=== PATIENT | male | born 1980 | race Caucasian/White ===

== ENCOUNTER 2017-01-31 09:51 | Emergency (ER) | payer BC ==
[2017-01-31] MEDS ORDERED: Ondansetron 4 MG/2 ML SDV IVPUSH ONE (10:10)
[2017-01-31] MEDS ORDERED: HYDROmorphone 1 MG/ML Syringe IVPUSH ONE ×5 (10:10→14:06)
[2017-01-31] MEDS ORDERED: Sodium Chloride 0.9% 1,000 ML IV SCH (10:15)
--- NOTE | 2017-01-31 10:17 | EDM.PDOC ---
ED HPI GENERAL MEDICAL PROBLEM - General Chief Complaint: Abdominal Pain Stated Complaint: CHEST AND ABDOMINAL PAIN Time Seen by Provider: 01/31/17 09:57 Source of Information: Reports: Patient, Family (), RN Notes Reviewed History Limitations: Reports: No Limitations - History of Present Illness INITIAL COMMENTS - FREE TEXT/NARRATIVE: The patient states that he developed upper abdominal pain around 09:00 this morning. He came on suddenly. It does not radiate. The patient has not identified any modifiers. He has not attempted any treatment. He states that he has had nausea, but no emesis. No recent constipation, diarrhea, urinary symptoms, or fever. No prior similar symptoms. The patient is a type I diabetic, and states that his blood sugar was 400 this morning. He states that he took 7 units of his fast acting insulin via his insulin pump, and his Accu-Chek is 129 here in the ED. The patient's last oral solid food was around 22:00 last night, and his last oral liquid was around 08:00 this morning. Upper Abdomen Pain Score (Numeric/FACES): 10 - Related Data Allergies Allergy/AdvReac Type Severity Reaction Status Date / Time bacitracin Allergy Rash Verified 01/31/17 09:56 Home Meds: Home Meds Insulin Lispro [HumaLOG] 0 units IDERM ASDIRECTED 07/22/14 [History] lamoTRIgine [Lamictal] 50 mg PO DAILY 01/31/17 [History] Past Medical History Neurological History: Reports: Seizure (only if he becomes hypoglycemic) Endocrine/Metabolic History: Reports: Diabetes, Type I - Past Surgical History Musculoskeletal Surgical History: Reports: Carpal Tunnel (bilateral) Social & Family History - Tobacco Use Smoking Status *Q: Former Smoker Years of Tobacco use: 22 Packs/Tins Daily: 0.5 Used Tobacco, but Quit: Yes Month Tobacco Last Used: Quit 2011 - Caffeine Use Caffeine Use: Reports: None - Alcohol Use Alcohol Use History: Yes Days Per Week of Alcohol Use: 0 Alcohol Use Frequency: Socially - Recreational Drug Use Recreational Drug Use: No - Living Situation & Occupation Living situation: Reports: , with Spouse Occupation: Employed ([employer]) ED ROS GENERAL - Review of Systems Review Of Systems: See Below Constitutional: Reports: No Symptoms HEENT: Reports: No Symptoms Respiratory: Reports: No Symptoms Cardiovascular: Reports: No Symptoms Endocrine: Reports: No Symptoms GI/Abdominal: Reports: No Symptoms : Reports: No Symptoms Musculoskeletal: Reports: No Symptoms Skin: Reports: No Symptoms Neurological: Reports: No Symptoms Psychiatric: Reports: No Symptoms Hematologic/Lymphatic: Reports: No Symptoms Immunologic: Reports: No Symptoms ED EXAM, GI/ABD - Physical Exam Exam: See Below Exam Limited By: No Limitations General Appearance: Alert, WD/WN, Moderate Distress (constantly groaning) Eyes: Bilateral: EOMI Ears: Normal External Exam, Hearing Grossly Normal Nose: Normal Inspection, No Blood Throat/Mouth: Normal Inspection, Normal Lips, Normal Voice, No Airway Compromise Head: Atraumatic, Normocephalic Neck: Normal Inspection, Full Range of Motion Respiratory/Chest: No Respiratory Distress, Lungs Clear, Normal Breath Sounds, No Accessory Muscle Use Cardiovascular: Normal Peripheral Pulses, Regular Rate, Rhythm, No Gallop, No JVD, No Murmur, No Rub GI/Abdominal Exam: Soft, Non-Tender (even to the upper abdomen), No Organomegaly , No Distention, No Abnormal Bruit, No Mass, Other (No bowel sounds). No: Guarding (Male) Exam: Deferred Back Exam: Normal Inspection, Full Range of Motion. No: CVA Tenderness (L), CVA Tenderness (R) Extremities: Normal Inspection, Normal Range of Motion, No Pedal Edema, Normal Capillary Refill Neurological: Alert, Oriented, Normal Cognition, No Motor/Sensory Deficits Psychiatric: Normal Affect Skin Exam: Warm, Dry, Intact, Normal Color, No Rash Lymphatic: No Adenopathy EKG INTERPRETATION EKG Date: 01/31/17 Time: 14:08 Rhythm: NSR Rate (Beats/Min): 71 Atkinson: Normal P-Wave: Present QRS: Normal ST-T: Normal QT: Normal Comparison: NA - No Prior EKG Course - Vital Signs Last Recorded V/S: Last Vital Signs Temp 36.6 C 01/31/17 09:59 Pulse 77 01/31/17 09:59 Resp 18 01/31/17 09:59 BP 159/114 H 01/31/17 09:59 Pulse Ox 100 01/31/17 09:59 - Orders/Labs/Meds Orders: Active Orders 24 hr Category Date Time Status Blood Glucose Check, Bedside [RC] ONETIME Care 01/31/17 12:40 Active EKG Documentation Completion [RC] STAT Care 01/31/17 14:00 Active ABG [BLOOD GAS ARTERIAL] [BG] Stat Lab 01/31/17 15:22 Ordered Sodium Chloride 0.9% [Normal Saline] 1,000 ml Med 01/31/17 10:15 Active IV ASDIRECTED Sodium Chloride 0.9% [Saline Flush] Med 01/31/17 10:36 Active 10 ml FLUSH ONETIME PRN Medication Orders Sodium Chloride (Normal Saline) 1,000 mls @ 150 mls/hr IV ASDIRECTED IRA Last Admin: 01/31/17 10:16 Dose: 150 mls/hr Sodium Chloride (Saline Flush) 10 ml FLUSH ONETIME PRN PRN Reason: IV FLUSH Last Admin: 01/31/17 11:48 Dose: 10 ml Admin: 01/31/17 10:52 Dose: 10 ml Labs: Laboratory Tests 01/31/17 01/31/17 01/31/17 Range/Units 09:55 09:55 09:56 WBC 12.65 H (4.23-9.07) K/mm3 RBC 5.95 (4.63-6.08) M/mm3 Hgb 17.2 (13.7-17.5) gm/L Hct 48.7 (40.1-51.0) % MCV 81.8 (79.0-92.2) fl MCH 28.9 (25.7-32.2) pg MCHC 35.3 (32.2-35.5) g/dl RDW Std Deviation 38.0 (35.1-43.9) fL Plt Count 347 H (163-337) K/mm3 MPV 9.3 L (9.4-12.3) fl Neutrophils % (Manual) 89 H (40-60) % Band Neutrophils % 2 (0-10) % Lymphocytes % (Manual) 6 L (20-40) % Atypical Lymphs % 0 % Monocytes % (Manual) 1 L (2-10) % Eosinophils % (Manual) 2 (0.8-7.0) % Basophils % (Manual) 0 L (0.2-1.2) Platelet Estimate Adequate RBC Morph Comment Normal Sodium 140 (136-145) mEq/L Potassium 3.9 (3.5-5.1) mEq/L Chloride 103 (98-107) mEq/L Carbon Dioxide 29 (21-32) mEq/L Anion Gap 11.9 (5-15) BUN 14 (7-18) mg/dL Creatinine 1.3 (0.7-1.3) mg/dL Est Cr Clr Drug Dosing 85.28 mL/min Estimated GFR (MDRD) > 60 (>60) mL/min BUN/Creatinine Ratio 10.8 L (14-18) Glucose 130 H (74-106) mg/dL POC Glucose 129 H (70-105) mg/dL Calcium 9.5 (8.5-10.1) mg/dL Total Bilirubin 0.4 (0.2-1.0) mg/dL AST 21 (15-37) U/L ALT 38 (16-63) U/L Alkaline Phosphatase 98 (46-116) U/L Troponin I (0.00-0.056) ng/mL Total Protein 8.3 H (6.4-8.2) g/dl Albumin 4.3 (3.4-5.0) g/dl Globulin 4.0 gm/dL Albumin/Globulin Ratio 1.1 (1-2) Lipase 100 (73-393) U/L Urine Color (Yellow) Urine Appearance (Clear) Urine pH (5.0-8.0) Ur Specific [place] (1.005-1.030) Urine Protein (Negative) Urine Glucose (UA) (Negative) Urine Ketones (Negative) Urine Occult Blood (Negative) Urine Nitrite (Negative) Urine Bilirubin (Negative) Urine Urobilinogen (0.2-1.0) Ur Leukocyte Esterase (Negative) Urine RBC (0-5) /hpf Urine WBC (0-5) /hpf Ur Epithelial Cells (0-5) /hpf Urine Bacteria (FEW) /hpf Urine Mucus (FEW) /hpf 01/31/17 01/31/17 Range/Units 12:50 14:10 WBC (4.23-9.07) K/mm3 RBC (4.63-6.08) M/mm3 Hgb (13.7-17.5) gm/L Hct (40.1-51.0) % MCV (79.0-92.2) fl MCH (25.7-32.2) pg MCHC (32.2-35.5) g/dl RDW Std Deviation (35.1-43.9) fL Plt Count (163-337) K/mm3 MPV (9.4-12.3) fl Neutrophils % (Manual) (40-60) % Band Neutrophils % (0-10) % Lymphocytes % (Manual) (20-40) % Atypical Lymphs % % Monocytes % (Manual) (2-10) % Eosinophils % (Manual) (0.8-7.0) % Basophils % (Manual) (0.2-1.2) Platelet Estimate RBC Morph Comment Sodium (136-145) mEq/L Potassium (3.5-5.1) mEq/L Chloride (98-107) mEq/L Carbon Dioxide (21-32) mEq/L Anion Gap (5-15) BUN (7-18) mg/dL Creatinine (0.7-1.3) mg/dL Est Cr Clr Drug Dosing mL/min Estimated GFR (MDRD) (>60) mL/min BUN/Creatinine Ratio (14-18) Glucose (74-106) mg/dL POC Glucose (70-105) mg/dL Calcium (8.5-10.1) mg/dL Total Bilirubin (0.2-1.0) mg/dL AST (15-37) U/L ALT (16-63) U/L Alkaline Phosphatase (46-116) U/L Troponin I < 0.017 (0.00-0.056) ng/mL Total Protein (6.4-8.2) g/dl Albumin (3.4-5.0) g/dl Globulin gm/dL Albumin/Globulin Ratio (1-2) Lipase (73-393) U/L Urine Color Yellow (Yellow) Urine Appearance Clear (Clear) Urine pH 5.5 (5.0-8.0) Ur Specific [place] 1.015 (1.005-1.030) Urine Protein Trace H (Negative) Urine Glucose (UA) 2+ H (Negative) Urine Ketones Negative (Negative) Urine Occult Blood Negative (Negative) Urine Nitrite Negative (Negative) Urine Bilirubin Negative (Negative) Urine Urobilinogen 0.2 (0.2-1.0) Ur Leukocyte Esterase Negative (Negative) Urine RBC 0-5 (0-5) /hpf Urine WBC 0-5 (0-5) /hpf Ur Epithelial Cells Not seen (0-5) /hpf Urine Bacteria Not seen (FEW) /hpf Urine Mucus Not seen (FEW) /hpf Meds: Medications Generic Name Dose Route Start Last Admin Trade Name Freq PRN Reason Stop Dose Admin Sodium Chloride 1,000 mls @ 150 mls/hr 01/31/17 10:15 01/31/17 10:16 Normal Saline IV 150 mls/hr ASDIRECTED IRA Administration Sodium Chloride 10 ml 01/31/17 10:36 01/31/17 11:48 Saline Flush FLUSH 10 ml ONETIME PRN Administration IV FLUSH Discontinued Medications Generic Name Dose Route Start Last Admin Trade Name Freq PRN Reason Stop Dose Admin Al Hydroxide/Mg Hydroxide 30 0 ml 01/31/17 12:27 01/31/17 13:31 ml/ Lidocaine HCl 15 ml PO 01/31/17 12:28 45 ml ONETIME STA Administration Diatrizoate Meglum/Diatrizoate Sod 120 ml 01/31/17 10:36 01/31/17 11:48 Gastrografin 37% PO 01/31/17 10:37 90 ml ONETIME ONE Administration Hydromorphone HCl 1 mg 01/31/17 10:10 01/31/17 10:18 Dilaudid IVPUSH 01/31/17 10:11 1 mg ONETIME ONE Administration Hydromorphone HCl 1 mg 01/31/17 10:33 01/31/17 10:37 Dilaudid IVPUSH 01/31/17 10:34 1 mg ONETIME ONE Administration Hydromorphone HCl 1 mg 01/31/17 10:46 01/31/17 10:50 Dilaudid IVPUSH 01/31/17 10:47 1 mg ONETIME ONE Administration Hydromorphone HCl Confirm 01/31/17 10:52 01/31/17 10:54 Dilaudid Administered 01/31/17 10:53 Not Given Dose 1 mg .ROUTE .STK-MED ONE Hydromorphone HCl 1 mg 01/31/17 12:20 01/31/17 12:25 Dilaudid IVPUSH 01/31/17 12:21 1 mg ONETIME ONE Administration Hydromorphone HCl 1 mg 01/31/17 14:06 01/31/17 14:17 Dilaudid IVPUSH 01/31/17 14:07 1 mg ONETIME ONE Administration Iopamidol 150 ml 01/31/17 10:36 01/31/17 11:48 Isovue-300 (61%) IVPUSH 01/31/17 10:37 100 ml ONETIME ONE Administration Ondansetron HCl 4 mg 01/31/17 10:10 01/31/17 10:17 Zofran IVPUSH 01/31/17 10:11 4 mg ONETIME ONE Administration - Re-Assessments/Exams Free Text/Narrative Re-Assessment/Exam: 01/31/17 12:28 CT of the abdomen and pelvis with oral and IV contrast is read by Dr. Farris as: 1. Mild increased stool within the colon. 2. Other normal findings as described above. Nothing acute is appreciated. 01/31/17 12:29 While the patient has not yet provided a urine sample, his blood work and CT scan is unremarkable, and does not explain the cause of the patient's pain. Perhaps he has gastritis. I have ordered a GI cocktail. 01/31/17 14:04 The patient states that he did not get relief from the GI cocktail. Test results discussed with the patient, his , and daughter. I was going to discharge the patient home, however, he became angry, asking "What, are you just going to kick me out?" The patient is still complaining of pain. He has so far received 4 mg of IV Dilaudid. I will order a 5th. Case then discussed with Dr. Reid. He suspects the patient may be suffering from neuropathy related to his diabetes. Treatment would be with Neurontin or Lyrica. He does not see an indication for EGD at this time. 01/31/17 15:[address] Saenz at 13:57. She agrees to place the patient into observation. She will consult Dr. Reid. 01/31/17 15:25 Dr. Saenz evaluated the patient, however, the patient now states that he does not want to be admitted. I will discharge him home. Departure - Departure Time of Disposition: 15:26 Disposition: Home, Self-Care 01 Condition: Fair Clinical Impression: Abdominal pain of unknown etiology - Discharge Information Referrals: Lindsay Dinh DO [Primary Care Provider] - Noel Reid MD [Physician] - Additional Instructions: You were seen in the emergency room for severe upper abdominal pain. Workup in the ER included blood work, a urinalysis, an ECG, and a CT scan of your abdomen and pelvis. Your entire workup was unremarkable, and does not explain the cause of your pain. Your case was discussed with the Surgeon Dr. Noel Reid. He suggested that your pain may be due to nerve damage from your diabetes. You were offered admission to the hospital for further evaluation, but declined. We recommend that you follow-up with Dr. Reid for possible EGD (scope of the esophagus and stomach). Follow-up with your PCP, Dr. Lindsay Dinh, as needed. If any other problems, please do not hesitate to return to the ER. - My Orders Last 24 Hours: My Active Orders 01/31/17 10:15 Sodium Chloride 0.9% [Normal Saline] 1,000 ml IV ASDIRECTED 01/31/17 10:36 Sodium Chloride 0.9% [Saline Flush] 10 ml FLUSH ONETIME PRN 01/31/17 12:40 Blood Glucose Check, Bedside [RC] ONETIME 01/31/17 14:00 EKG Documentation Completion [RC] STAT - Assessment/Plan Last 24 Hours: My Active Orders 01/31/17 10:15 Sodium Chloride 0.9% [Normal Saline] 1,000 ml IV ASDIRECTED 01/31/17 10:36 Sodium Chloride 0.9% [Saline Flush] 10 ml FLUSH ONETIME PRN 01/31/17 12:40 Blood Glucose Check, Bedside [RC] ONETIME 01/31/17 14:00 EKG Documentation Completion [RC] STAT
[2017-01-31] MEDS ORDERED: Iopamidol 612 MG/ML 150 ML Bottle IVPUSH ONE (10:36)
[2017-01-31] MEDS ORDERED: Diatrizoate Meglumine/Diatrizoate Sodium 37% 120 ML Bottle PO ONE (10:36)
[2017-01-31] MEDS: Sodium Chloride 0.9% 10 ML Syringe FLUSH PRN ×2 (10:52→11:48)
[2017-01-31] MEDS ORDERED: HYDROmorphone 1 MG/ML Syringe ONE (10:52)
--- NOTE | 2017-01-31 12:21 | CT ---
CT abdomen and pelvis Technique: Multiple axial sections were obtained from above the dome of the diaphragm inferiorly through the pubic symphysis. Intravenous contrast was utilized. No oral contrast has been given. Delayed images were also obtained through the abdomen and pelvis. Findings: Visualized lung bases shows incidental dependent atelectasis. Liver shows no focal parenchymal abnormality. Gallbladder shows no calcified gallstones. Spleen appears within normal limits. Adrenal glands show no nodule. Kidneys show symmetric contrast enhancement without hydronephrosis or mass. Delayed images shows contrast excretion from both kidneys into nondilated ureters. Contrast is noted within the bladder. Aorta shows no aneurysmal dilatation. No retroperitoneal adenopathy or mesenteric abnormalities are seen. Mild increased stool is noted throughout the colon particularly within the descending and rectosigmoid regions. Appendix is felt to be seen and appears to be normal. No free fluid or inflammatory change is seen. Bone window settings were reviewed appears within normal limits for the patient's age. Impression: 1. Mild increased stool within the colon. 2. Other normal findings as described above. Nothing acute is appreciated. Diagnostic code #2
[2017-01-31] MEDS ORDERED: Alum Hydrox/Mag Hydrox/Simeth 30 ML, Lidocaine 2% 15 ML PO STA ×2 (12:27)
[2017-01-31 15:55] VITALS: BP 140/70
== END 2017-01-31 15:55 | disposition home or self-care (01) ==
LOC: JD.ED 09:51 → SUPCPDRO 09:51 → JD.ED 15:55
DX: R10.10 Upper abdominal pain, unspecified (principal); E10.9 Type 1 diabetes mellitus without complications; Z79.4 Long term (current) use of insulin; Z88.1 Allergy status to other antibiotic agents; Z98.890 Other specified postprocedural states; Z87.891 Personal history of nicotine dependence
CPT/HCPCS: 36415; 74177; 80053; 81001; 82962; 83690; 84484; 85025; 93005; 96361; 96374; 96375; 96376; 99285; A9270; J1170; J2405; J7040; J7050; Q9963; Q9967; 99284

== ENCOUNTER 2019-09-03 12:28 | Emergency (ER) | payer BC, OTHER ==
[2019-09-03] MEDS ORDERED: Lidocaine 1% 10 ML MDV INJECT ONE (13:09)
--- NOTE | 2019-09-03 13:15 | EDM.PDOC ---
ED HPI GENERAL MEDICAL PROBLEM - General Chief Complaint: Laceration Stated Complaint: LACERATION TO LEFT INDEX FINGER Time Seen by Provider: 09/03/19 12:52 Source of Information: Reports: Patient History Limitations: Reports: No Limitations - History of Present Illness INITIAL COMMENTS - FREE TEXT/NARRATIVE: Patient is a 39-year-old male who presents with complaints of a laceration to his left index finger. He states that he cut it on a carbide grinder. Prior to coming to the ER he was seen at the occupational health clinic. He did receive a tetanus vaccination and the wound was cleaned at that time. He denies any numbness or tingling to the finger. He has full movement of the finger and full strength of flexion extension. Left Finger-Index Pain Score (Numeric/FACES): 8 - Related Data Allergies Allergy/AdvReac Type Severity Reaction Status Date / Time bacitracin Allergy Rash Verified 09/03/19 12:44 Home Meds: Home Meds Insulin Aspart [NovoLOG] 0 unit SQ ASDIRECTED 09/03/19 [History] Past Medical History HEENT History: Reports: None Cardiovascular History: Reports: None Respiratory History: Reports: None Gastrointestinal History: Reports: None Genitourinary History: Reports: None Neurological History: Reports: Seizure Psychiatric History: Reports: None Endocrine/Metabolic History: Reports: Diabetes, Type I Hematologic History: Reports: None Immunologic History: Reports: None Oncologic (Cancer) History: Reports: None Dermatologic History: Reports: None - Infectious Disease History Infectious Disease History: Reports: None - Past Surgical History Musculoskeletal Surgical History: Reports: Carpal Tunnel Social & Family History - Tobacco Use Smoking Status *Q: Never Smoker - Caffeine Use Caffeine Use: Reports: Energy Drinks - Recreational Drug Use Recreational Drug Use: No - Living Situation & Occupation Living situation: Reports: , with Spouse Occupation: Employed ([employer]) ED ROS GENERAL - Review of Systems Review Of Systems: Comprehensive ROS is negative, except as noted in HPI. ED EXAM, SKIN/RASH Exam: See Below Exam Limited By: No Limitations General Appearance: Alert, WD/WN, No Apparent Distress Respiratory/Chest: No Respiratory Distress, Lungs Clear, Normal Breath Sounds, No Accessory Muscle Use, Chest Non-Tender Cardiovascular: Normal Peripheral Pulses, Regular Rate, Rhythm, No Edema, No Gallop, No JVD, No Murmur, No Rub Extremities: Other (1.8 cm linear laceration to the dorsal aspect of the left index finger between the PIP and DIP joints. Patient has full strength to flexion and extension.) Neurological: Alert, Oriented, CN II-XII Intact, Normal Cognition, Normal Gait, Normal Reflexes, No Motor/Sensory Deficits Psychiatric: Normal Affect, Normal Mood ED SKIN PROCEDURES - Laceration/Wound Repair Left Digit - 2nd (Index) Appearance: Subcutaneous Distal NVT: Neuro & Vascular Intact Anesthetic Type: Local Local Anesthesia - Lidocaine (Xylocaine): 1% Plain Local Anesthetic Volume: 1cc Skin Prep: Chlorhexidine (Hibiciens), Providone-Iodine (Betadine), Saline Exploration/Debridement/Repair: Wound Explored, In a Bloodless Field, Explored to Base Closed with: Sutures Lac/Wound length In cm: 1.8 Suture Size: 4-0 # of Sutures: 5 Suture Type: Nylon Sterile Dressing Applied: Nurse Tetanus Status Addressed: Yes Complications: No Course - Vital Signs Last Recorded V/S: Last Vital Signs Temp 97.9 F 09/03/19 12:39 Pulse 55 L 09/03/19 12:39 Resp 16 09/03/19 12:39 BP 145/84 H 09/03/19 12:39 Pulse Ox 97 09/03/19 12:39 - Orders/Labs/Meds Meds: Medications Discontinued Medications Generic Name Dose Route Start Last Admin Trade Name Nicole PRN Reason Stop Dose Admin Lidocaine HCl 10 ml 09/03/19 13:09 09/03/19 13:18 Xylocaine 1% INJECT 09/03/19 13:10 10 ml ONETIME ONE Administration Departure - Departure Time of Disposition: 13:46 Disposition: Home, Self-Care 01 Condition: Good Clinical Impression: Finger laceration Qualifiers: Encounter type: initial encounter Finger: index finger Damage to nail status: without damage Foreign body presence: without foreign body Laterality: left Qualified Code(s): S61.211A - Laceration without foreign body of left index finger without damage to nail, initial encounter - Discharge Information *PRESCRIPTION DRUG MONITORING PROGRAM REVIEWED*: No *COPY OF PRESCRIPTION DRUG MONITORING REPORT IN PATIENT RONAL: No Instructions: Laceration Care, Adult Referrals: Richelle Garcia PA-C [Primary Care Provider] - Forms: ED Department Discharge Additional Instructions: You were seen in the emergency department today for a laceration to your left index finger. The wound was cleansed and closed with 5 sutures. I would recommend the sutures stay in place until least Saturday of next week. Clean the wound twice daily with normal soap and water. If there is a chance the wound could become contaminated, I would recommend that you keep it covered with a Band-Aid or other dressing. If there is no chance of contamination, you can leave it open to air. Watch for signs of infection including redness, swelling , drainage. If these should occur you should be evaluated for the possibility of antibiotics. Return to the ER as needed. Sepsis Event Note - Evaluation Sepsis Screening Result: No Definite Risk - Focused Exam Vital Signs: Vital Signs Temp Pulse Resp BP Pulse Ox 09/03/19 12:39 97.9 F 55 L 16 145/84 H 97 Date Exam was Performed: 09/03/19 Time Exam was Performed: 13:45
[2019-09-03 14:16] VITALS: BP 142/90; PULSE 70
== END 2019-09-03 13:58 | disposition home or self-care (01) ==
LOC: JD.ED 12:28
DX: S61.211A Laceration without foreign body of left index finger without damage to nail, initial encounter (principal); E10.9 Type 1 diabetes mellitus without complications; Z88.8 Allergy status to other drugs, medicaments and biological substances; W26.8XXA Contact with other sharp object(s), not elsewhere classified, initial encounter
CPT/HCPCS: 12001; 99282; J2001